=== PATIENT | female | born 1950 | race Caucasian/White ===

== ENCOUNTER 2016-12-16 07:00 | Day surgery (SDC) | payer OTHER ==
[~2016-12-16 07:00] MED LIST: TROP 1%/CYCLOPEN 1%/PHENYL 2% DROPS ONE
[2016-12-16] MEDS: PROPARACAINE 0.5% OPHTH SOL 15 ML BTTL ONE ×3 (09:25→10:21)
[2016-12-16] MEDS ORDERED: TOBRAMYCIN-DEXAMETH OPHTH SOL 1 DROP LEFT_EYE ONE (09:25)
[2016-12-16] MEDS ORDERED: MIDAZOLAM INJ 2 MG/2 ML VIAL ONE (10:18)
[2016-12-16] MEDS ORDERED: LIDOCAINE 1% PF 2 ML AMP INJ ONE (10:32)
[2016-12-16] MEDS ORDERED: GENTAMICIN 0.3% OPHTH SOL 1 DROP LEFT_EYE ONE ×2 (10:33→10:48)
[2016-12-16] MEDS ORDERED: DEXAMETHASONE 0.1% OPHTH SOL 1 DROP LEFT_EYE ONE ×2 (10:33→10:48)
[2016-12-16] MEDS ORDERED: BRIMONIDINE 0.2% OPHTH DROPS LEFT_EYE ONE ×2 (10:34→10:48)
[2016-12-16 11:27] VITALS: TEMP 97.5
[2016-12-16 14:33] VITALS: BP 121/77; O2SAT 98
== END 2016-12-16 11:25 | disposition home or self-care (01) ==
LOC: AMB 07:00
PROVIDERS: ATTEND Ophthalmology
DX: H25.012 Cortical age-related cataract, left eye (principal); E11.36 Type 2 diabetes mellitus with diabetic cataract; I10 Essential (primary) hypertension; K21.9 Gastro-esophageal reflux disease without esophagitis; E66.9 Obesity, unspecified; Z87.891 Personal history of nicotine dependence; Z79.84 Long term (current) use of oral hypoglycemic drugs; Z79.899 Other long term (current) drug therapy

== ENCOUNTER → 2016-12-26 | Day surgery (SDC) | payer OTHER ==
[~2016-12-26] MED LIST changes: +BRIMONIDINE 0.2% OPHTH DROPS RIGHT_EYE ONE; +DEXAMETHASONE 0.1% OPHTH SOL 1 DROP RIGHT_EYE ONE; +LIDOCAINE 1% PF 2 ML AMP INJ ONE; +MIDAZOLAM INJ 2 MG/2 ML VIAL ONE; +PROPARACAINE 0.5% OPHTH SOL 15 ML BTTL ONE; +PROPARACAINE 0.5% OPHTH SOL 15 ML BTTL RIGHT_EYE ONE; +TOBRAMYCIN SULF 0.3 % OPHT SOL 1 DROP RIGHT_EYE ONE; +TROP 1%/CYCLOPEN 1%/PHENYL 2% DROPS OPHTH ONE
[2016-12-26 18:00] VITALS: BP 143/83; TEMP 97.1; O2SAT 95
== END ==
LOC: AMB 06:12
PROVIDERS: ATTEND Ophthalmology
DX: H25.11 Age-related nuclear cataract, right eye (principal); I10 Essential (primary) hypertension; E11.36 Type 2 diabetes mellitus with diabetic cataract; K21.9 Gastro-esophageal reflux disease without esophagitis; E66.9 Obesity, unspecified; Z87.891 Personal history of nicotine dependence; Z79.84 Long term (current) use of oral hypoglycemic drugs; Z79.899 Other long term (current) drug therapy